=== PATIENT | female | born 1995 | race Caucasian/White ===

== ENCOUNTER 2025-05-15 18:39 | Inpatient (IN) ==
[2025-05-15] MEDS ORDERED: CALCIUM CARBONATE 500 MG CHEWABLE TAB PO PRN (19:32)
[2025-05-15] MEDS ORDERED: LIDOCAINE 1% LOCAL 20 ML VIAL INFIL PRN (19:32)
[2025-05-15] MEDS: LACTATED RINGER'S 1,000 ML IV PRN (20:21)
[2025-05-15] MEDS: PENICILLIN GK 6 MU in DEXTROSE 5% 250 ML IV STA (20:22)
[2025-05-15 20:24] LABS: Hematocrit (blood only) 42.3 % (37.0-47.0); Hemoglobin 14.6 g/dL (12.0-16.0); Mean Corpuscular Hemoglobin 30.3 pg (25.0-34.0); Mean Corpuscular Volume 87.8 fL (80.0-100.0); Platelet Count 195 K/uL (130-400); RDW Standard Deviation 43.8 fL (36.4-46.3); Red Blood Count 4.82 M/uL (4.20-5.40); White Blood Count 12.33 K/ul (4.8-10.8)
[2025-05-15] MEDS ORDERED: ONDANSETRON INJ 2 MG/ML 2 ML VIAL IV PRN (21:47)
[2025-05-15] MEDS ORDERED: NALBUPHINE HCL INJ 10 MG/ML AMP IV PRN (21:47)
[2025-05-15] MEDS ORDERED: BUPIVACAINE 0.25% PF 30 ML VIAL EPI PRN (21:47)
[2025-05-15] MEDS ORDERED: NALOXONE HCL 1 MG in SODIUM CHLORIDE 0.9% 1,000 ML IV PRN (21:47)
[2025-05-15] MEDS ORDERED: NALOXONE HCL 0.4 MG/1 ML VIAL/CARP IV PRN (21:47)
[2025-05-15] MEDS ORDERED: LIDOCAINE 2% MPF LOCAL 5 ML VIAL EPI PRN (21:47)
[2025-05-15] MEDS ORDERED: SODIUM CHLORIDE 0.9% PF INJ 10 ML VIAL EPI PRN (21:47)
[2025-05-15] MEDS ORDERED: ROPIVACAINE 0.5% PF 5 MG/ML 20 ML VIAL EPI PRN (21:47)
[2025-05-15] MEDS ORDERED: diphenhydrAMINE 50 MG/ML VIAL IV PRN (21:47)
--- NOTE | 2025-05-15 21:47 | Anesthesiology Consultation ---
Date of Service May 15, 2025 Assessment & Plan ASA ASA2 Proposed Anesthesia Anesthesia Type: Labor Epidural Risk / Benefits Reviewed With: PT / POA / Parent / Guardian, Accepts Plan and Informed Consent Obtained History Height/Weight Height: 5 ft 6 in Weight: 73.028 kg Allergies Allergy/AdvReac Type Severity Reaction Status Date / Time No Known Drug Allergies Allergy Verified 02/10/24 10:49 Medications Home Medications Medication Instructions Recorded Confirmed Last Taken Probiotic 1 cap PO DAILY 02/12/23 05/15/25 05/15/25 08:00 mometasone 0.1 % topical cream 1 applic topical BID PRN Other 02/12/23 05/15/25 05/15/25 08:00 omega 8-lne-viv-fish oil 60 mg-90 1 cap PO DAILY 02/10/24 05/15/25 05/15/25 08:00 mg-500 mg capsule (Fish Oil) 05/15/25 05/15/25 08:00 Vitamin D3 05/15/25 05/15/25 08:00 iron 05/15/25 05/15/25 08:00 magnesium 05/15/25 05/15/25 08:00 Active Medications Generic Name Dose Route Start Last Admin Trade Name Freq PRN Reason Stop Dose Admin Fentanyl/Bupivacaine/Sodium Chlor 100 ml 05/15/25 21:47 05/15/25 22:13 Fentanyl 2 Mcg/Ml Bupivacaine 0.125%-Nss 100ml Bag EPI 05/16/25 21:46 100 ml PRN PRN Administration Pain R/T Labor Protocol Lactated Ringer's 1,000 mls @ 125 mls/hr 05/15/25 19:32 05/15/25 20:21 Lr IV 05/17/25 19:31 125 mls/hr .Q8H PRN Administration L&D Protocol Protocol Exercise / Class Metabolic Activity II 4-5 Yardwork/Stairs/Walk up hill Past Family History Family History Denies family history of Ovarian cancer Prostate cancer Myocardial infarction Breast cancer Colorectal cancer Past Anesthesia History No Hx of Anesthesia Complications and No Family Hx of Anesthesia Complications History of PONV No Hx of PONV and No Hx of Motion Sickness Social History Smoking Status: Never smoker Do You Dip or Chew Tobacco: No Hx Alcohol Use: No Hx Substance Use: No substance use type: does not use Review of Systems denies fever/cough/ colds/ chest pain/ SOB/ NIEVES denies NIEVES Physical Exam Vital Signs Last Vital Signs Temp 37.1 C 05/15/25 19:58 Pulse 87 05/15/25 22:13 Resp 18 05/15/25 19:58 BP 142/79 H 05/15/25 22:13 Pulse Ox 100 05/15/25 22:13 ENMT Mouth: no TMJ abnormality and no dentition abnormality Thyromental Distance: > or= 3.5 Finger Breadths Mallampati Class: II Neck neck extension not limited Respiratory normal respiratory effort; no respiratory distress Auscultation: lungs clear to auscultation bilaterally Cardiovascular Rate/Rhythm: regular rate and regular rhythm Neurologic moves all extremities Psychiatric Orientation: alert and oriented x 3 Testing Laboratory Results 05/15/25 19:40
[2025-05-15] MEDS: fentANYL 2 MCG/ML BUPIVacaine 0.125%-NSS 100ML BAG EPI PRN (22:13)
[2025-05-15] MEDS: LIDOCAINE 2%/EPINEPHRINE 1:200,000 20 ML PF EPI STA (22:21)
[2025-05-15] MEDS: SODIUM CHLORIDE 0.9% PF INJ 10 ML VIAL ONE (22:22)
[2025-05-15] MEDS: BUPIVACAINE 0.25% PF 30 ML VIAL ONE (22:22)
[2025-05-15] MEDS: BUPIVACAINE 0.25% PF 30 ML VIAL EPI STA (22:22)
[2025-05-15] MEDS: fentANYL 2 MCG/ML BUPIVacaine 0.125%-NSS 100ML BAG ONE (22:23)
[2025-05-15] MEDS: SODIUM CHLORIDE 0.9% PF INJ 10 ML VIAL EPI STA (22:23)
[2025-05-15] MEDS: LIDOCAINE 2%/EPINEPHRINE 1:200,000 20 ML PF ONE (22:23)
[2025-05-16] MEDS: PENICILLIN GK 3 MU in DEXTROSE 5% 100 ML IV PRN (00:01)
[2025-05-16] MEDS ORDERED: OXYTOCIN 30 UNITS/NSS 30 UNITS/500 ML BAG IV PRN ×2 (01:01→08:15)
[2025-05-16] MEDS: OXYTOCIN 30 UNITS/NSS 30 UNITS/500 ML BAG IV PRN (07:28)
[2025-05-16] MEDS: METHYLERGONOVINE MALEATE 0.2 MG/ML AMP ONE (07:29)
--- NOTE | 2025-05-16 08:14 | Anesthesia Procedure Note ---
Date of Service May 16, 2025 Anesthesia Post Epidural Note Vital Signs Vital Signs: Temp Pulse Resp BP Pulse Ox 37.2 C 98 H 18 136/77 95 05/16/25 03:04 05/16/25 08:08 05/16/25 03:04 05/16/25 07:58 05/16/25 08:08 Pain Intensity Abdomen: Pain Intensity: 2 Notes Mental Status: alert / awake / arousable and participated in evaluation Patient Amnestic to Procedure: No Nausea / Vomiting: adequately controlled Pain: adequately controlled Airway Patency, RR, SpO2: stable & adequate BP & HR: stable & adequate Hydration State: stable & adequate Neuraxial Anesthesia: was administered and sensory block is resolving Anesthetic Complications: no major complications apparent and Pt Satisfied with anesthetic care Epidural: Removed without complications and With tip intact
[2025-05-16] MEDS ORDERED: HYDROCORTISONE ACETATE 25 MG SUPP PR PRN (08:15)
[2025-05-16] MEDS ORDERED: ACETAMINOPHEN 325 MG TAB PO PRN (08:15)
[2025-05-16] MEDS ORDERED: ACETAMINOPHEN W/CODEINE #3 1 TAB PO PRN (08:15)
--- NOTE | 2025-05-16 08:20 | Delivery Summary ---
Vaginal Delivery Summary Date of Service May 16, 2025 Vaginal Delivery Summary Patient is followed in the office for care and delivery. Patient was scheduled for induction in [place]. Came in in active labor. Patient is a 1 para 1. Patient was about 4 cm and 90% effaced on initial exam. She was given penicillin for strep prophylaxis. She was allowed to labor on her own. At about 5 cm she requested and received epidural anesthesia. After the epidural membranes were ruptured surgically. She had an unstimulated labor went to full dilatation pushed out a live female infant after about 2-1/2 hours of pushing via direct occiput anterior position over an intact perineum. There was a loose nuchal cord which was reduced over the head. There was some shoulder dystocia but this was managed by delivering the patient's posterior arm which had been present at the time of delivery in front of the 's face. I grabbed the hand with a 4 x 4 pulled the arm over the perineum and the rest of the shoulders came without any problem. Following this placenta was removed intact with IV Pitocin running and IM Methergine. Inspection of the perineum revealed a second-degree laceration. This was repaired anatomically. The vaginal mucosa was approximated with a continuous 2-0 Vicryl out and to beyond the hymenal ring. 2 deep sutures of Vicryl were used approximate the perineal body. A deep suture was used to approximate the bulbocavernosus muscle. Separate sutures used to bolster the rectal sphincter capsule. And the skin edges were approximated running subcuticular Vicryl. Following this hemostasis was good. Palpation of the vagina was good. Rectal exam revealed no stitches through the rectum. Sponges were removed. Quantitative blood loss was 100 mL. Patient tolerated delivery well
[2025-05-16] MEDS: DIPHTHER/TETAN/PERTUS Vaccine (Tdap, Adol/Adult) 0.5mL IM ONE (09:01)
[2025-05-16] MEDS: METHYLERGONOVINE MALEATE 0.2 MG/ML AMP IM ONE (09:01)
[2025-05-16] MEDS: IBUPROFEN 600 MG TAB PO PRN (09:36)
[2025-05-16] MEDS: BENZOCAINE 20% SPRY 85 APPLN/85 GM CAN EXT PRN (09:37)
[2025-05-16] MEDS: LIDOCAINE 2% JELLY 5 ML TUBE EXT SCH (13:45)
[2025-05-16] MEDS: DOCUSATE SODIUM 100 MG CAP PO SCH (22:03)
[2025-05-17] MEDS: PRENATAL VITAMIN 1 TAB PO SCH (07:29)
[2025-05-17 10:48] LABS: Hematocrit (blood only) 36.3 % (37.0-47.0); Hemoglobin 12.3 g/dL (12.0-16.0); Mean Corpuscular Hemoglobin 30.0 pg (25.0-34.0); Mean Corpuscular Volume 88.5 fL (80.0-100.0); Platelet Count 164 K/uL (130-400); RDW Standard Deviation 45.2 fL (36.4-46.3); Red Blood Count 4.10 M/uL (4.20-5.40); White Blood Count 14.36 K/ul (4.8-10.8)
--- NOTE | 2025-05-17 10:54 | Obstetrical Progress Note ---
Date of Service May 17, 2025 Subjective Ambulation: ambulating normally Voiding: no voiding problems Passing Gas:: Yes Diet Tolerance:: regular diet Lochia:: Small Feeding Type:: breast feeding Current Pain Level(1-10): 0 doing well Physical Exam Constitutional WD/WN, vitals as above Gastrointestinal (Abdomen) Inspection/Auscultation: abdomen normal to inspection abdomen soft and non-tender. fundus firm below U. Musculoskeletal Extremities: extremities normal to inspection Skin no rashes, warm and dry Neurologic patellar DTR's 2+ bilat, sensation intact Psychiatric A+Ox3, euthymic affect Results & Data Vital Signs (Past 12 Hours) Vital Signs Temp Pulse Resp BP Pulse Ox O2 Del Method 05/17/25 07:26 36.6 C 81 18 104/58 L 99 Room Air 05/17/25 03:04 36.4 C L 70 18 103/61 98 Room Air 05/16/25 23:00 36.4 C L 86 16 127/77 98 Room Air Laboratory Results Laboratory Results - last 72 hr 05/15/25 05/17/25 19:40 10:21 WBC 12.33 H 14.36 H RBC 4.82 4.10 L Hgb 14.6 12.3 Hct 42.3 36.3 L MCV 87.8 88.5 MCH 30.3 30.0 MCHC 34.5 33.9 RDW Std Deviation 43.8 45.2 RDW Coeff of Ricardo 13.7 14.1 Plt Count 195 164 MPV 10.8 10.5 Treponema pallidum Ab Negative
[2025-05-18 06:15] LABS: Hematocrit (blood only) 38.0 % (37.0-47.0); Hemoglobin 13.0 g/dL (12.0-16.0); Immature Granulocytes # (auto) 0.23 K/uL (0.01-0.20); Immature Granulocytes % (auto) 1.9 %; Mean Corpuscular Hemoglobin 30.7 pg (25.0-34.0); Mean Corpuscular Volume 89.8 fL (80.0-100.0); Platelet Count 191 K/uL (130-400); RDW Standard Deviation 45.1 fL (36.4-46.3); Red Blood Count 4.23 M/uL (4.20-5.40); White Blood Count 12.43 K/ul (4.8-10.8)
--- NOTE | 2025-05-18 09:33 | Obstetrical Progress Note ---
Date of Service May 18, 2025 Assessment & Plan Admission and Anticipated Discharge Date Admission Date: May 15, 2025 Subjective Patient is seen and examined. She feels well, no complaints. Ambulating without dizziness Voiding without difficulty Tolerating regular diet with out N&V Bleeding is minimal No fever/ chills/ CP/ SOB/ N&V/ Leg pain Breast feeding without problems Vital Signs Temp Pulse Resp BP Pulse Ox O2 Del Method 05/18/25 07:14 36.8 C 87 18 131/76 98 Room Air 05/18/25 00:00 36.7 C 68 16 136/79 98 Room Air 05/17/25 19:45 36.4 C L 88 17 116/78 98 Room Air 05/17/25 16:30 36.5 C 88 18 134/78 97 Room Air Lab Results 05/15/25 05/17/25 05/18/25 Range/Units 19:40 10:21 05:45 WBC 12.33 H 14.36 H 12.43 H (4.8-10.8) K/ul RBC 4.82 4.10 L 4.23 (4.20-5.40) M/uL Hgb 14.6 12.3 13.0 (12.0-16.0) g/dL Hct 42.3 36.3 L 38.0 (37.0-47.0) % MCV 87.8 88.5 89.8 (80.0-100.0) fL MCH 30.3 30.0 30.7 (25.0-34.0) pg MCHC 34.5 33.9 34.2 (32.0-36.0) g/dL RDW Std Deviation 43.8 45.2 45.1 (36.4-46.3) fL RDW Coeff of Ricardo 13.7 14.1 13.9 (11.5-14.5) % Plt Count 195 164 191 (130-400) K/uL MPV 10.8 10.5 10.3 (9.4-12.4) fL Immature Gran % (Auto) 1.9 % Neut % (Auto) 66.3 % Lymph % (Auto) 18.3 % [place] % (Auto) 9.1 % Eos % (Auto) 3.8 % Baso % (Auto) 0.6 % Neut # (Auto) 8.25 H (1.40-6.50) K/uL Lymph # (Auto) 2.28 (1.20-3.40) K/uL [place] # (Auto) 1.13 H (0.11-0.59) K/uL Eos # (Auto) 0.47 (0.00-0.50) K/uL Baso # (Auto) 0.07 (0.00-0.20) K/uL Immature Gran # (Auto) 0.23 H (0.01-0.20) K/uL Treponema pallidum Ab Negative (Negative) PE: General: Alert, orientedx3, NAD Abd: soft, NT, fundus firm, below Umbilicus Perineum intact, Lochia rubra minimal Ext; NT, no edema AP: 29 yo s/p , ppd# 2 VSS Afebrile doing well Continue routine care All questions were answered D/C home, f/u in office Results & Data Vital Signs (Past 12 Hours) Vital Signs Temp Pulse Resp BP Pulse Ox O2 Del Method 05/18/25 07:14 36.8 C 87 18 131/76 98 Room Air 05/18/25 00:00 36.7 C 68 16 136/79 98 Room Air
[2025-05-18 16:18] VITALS: BP 102/61; PULSE 81; RESP 16; TEMP 98.6; O2SAT 96
[2025-05-18] MEDS: ACETAMINOPHEN 325 MG TAB PO PRN (18:10)
== END 2025-05-18 18:35 | disposition home health service (06) | DRG 807 ==
LOC: OPB 18:39 → 4S1 18:40 → 4E1 05-16 10:45